=== PATIENT | male | born 1995 | race African-American/Black ===

== ENCOUNTER 2017-01-24 02:20 | Emergency (ER) | payer MEDICAID ==
[~2017-01-24] VITALS: Ht 177.8 cm; Wt 139.7 kg
--- NOTE | 2017-01-24 02:30 | NUR ---
21 yo male bb ra from senior living cell. Per EMS, while pt was in custody and waiting for [employer], he began to bang his head on the senior living wall, EMS brought pt to [facility] ED. pt is alert x 3, states he wants to hurt himself with plan; take all his psych meds at the same time. skin warm and dry, rr even and unlabored. awaiting orders from provider
[2017-01-24] MEDS ORDERED: HALOPERIDOL LACTATE INJ 5 MG/ML VIAL ONE (02:32)
[2017-01-24] MEDS ORDERED: LORAZEPAM INJ 2 MG/ML VIAL ONE (02:33)
[2017-01-24 02:47] LABS: BASOPHILS % (AUTO) 0.6 % (0.0-2.0); EOSINOPHILS # (AUTO) 0.1 /CMM (0.0-0.7); EOSINOPHILS % (AUTO) 1.4 % (0.0-6.0); HEMATOCRIT 41 % (39-51); LYMPHOCYTES # (AUTO) 2.3 /CMM (0.8-4.8); LYMPHOCYTES % (AUTO) 29.9 % (20.0-44.0); MEAN CORPUSCULAR HEMOGLOBIN 32 PG (26.0-33.0); MEAN CORPUSCULAR HGB CONC 34 g/dl (31.0-36.0); MEAN CORPUSCULAR VOLUME 93 fL (80-96); MONOCYTES # (AUTO) 0.5 /CMM (0.1-1.30); MONOCYTES % (AUTO) 5.8 % (2.0-12.0); NEUTROPHILS # (AUTO) 4.9 /CMM (1.8-8.9); NEUTROPHILS % (AUTO) 62.3 % (43.0-81.0); PLATELET COUNT (AUTO) 317 /CMM (150-450); RDW COEFFICIENT OF VARIATION 14.8 (11.5-15.0); RED BLOOD CELL COUNT(AUTO) 4.43 MIL/uL (4.5-6.0); WHITE BLOOD COUNT (AUTO) 7.8 K/uL (4.3-11.0)
[2017-01-24] MEDS: LORAZEPAM INJ 2 MG/ML VIAL IM ONE (02:48)
[2017-01-24] MEDS: HALOPERIDOL LACTATE INJ 5 MG/ML VIAL IM ONE (02:48)
--- NOTE | 2017-01-24 02:50 | NUR ---
medicated pt as ordered
--- NOTE | 2017-01-24 03:05 | NUR ---
urine sample obtained and sent to lab
[2017-01-24 03:10] LABS: ALANINE AMINOTRANSFERASE 44 U/L (12-78); ALBUMIN 3.8 g/dL (3.4-5.0); ASPARTATE AMINOTRANSFERASE 26 U/L (15-37); BILIRUBIN,DIRECT 0.1 mg/dL (0.0-0.2); BILIRUBIN,TOTAL 0.4 mg/dL (0.2-1.0); CARBON DIOXIDE 27 mmol/L (21-32); CHLORIDE 107 mmol/L (98-107); CREATININE 1.1 mg/dL (0.6-1.3); GFR 85 mL/min (>60); GLUCOSE 96 mg/dL (74-106); POTASSIUM 3.7 mmol/L (3.5-5.1); SODIUM SERUM 143 mmol/L (136-145); UREA NITROGEN, BLOOD 13 mg/dL (7-18)
--- NOTE | 2017-01-24 03:10 | NUR ---
gave pt juice and crackers
[2017-01-24 03:16] LABS: ACETAMINOPHEN 0 ug/ml (10-30); ALCOHOL, BLOOD < 3 mg/dL (0-0); SALICYLATE 1.2 mg/dL (2.8-20.0)
[2017-01-24 03:26] LABS: ALKALINE PHOSPHATASE 90 U/L (46-116); TOTAL PROTEIN, SERUM 7.8 g/dL (6.4-8.2)
[2017-01-24 03:46] LABS: APPEARANCE,URINE CLEAR (CLEAR); BILIRUBIN,URINE NEGATIVE (NEGATIVE); BLOOD, URINE NEGATIVE Ery/uL (NEGATIVE); COLOR,URINE YELLOW (YELLOW); KETONES,URINE NEGATIVE (NEGATIVE); LEUKOCYTE ESTERASE ,URINE NEGATIVE (NEGATIVE); NITRITE, URINE NEGATIVE (NEGATIVE); PROTEIN,URINE TRACE mg/dl (NEGATIVE); UGLUCOSE NEGATIVE (NEGATIVE); UROBILINOGEN,URINE 0.2 EU/dL (0.2)
[2017-01-24 03:55] LABS: PHENCYCLIDINE SCREEN,URINE NEGATIVE (NEGATIVE)
[2017-01-24 04:04] LABS: CANNABINOID, URINE POSITIVE (NEGATIVE)
[2017-01-24 04:08] LABS: ADD URINE CULTURE NO; BACTERIA,URINE None seen /HPF (None Seen); RBC,URINE 0-2 /HPF (0-2); SQUAMOUS EPITHELIAL CELL,UR Rare /HPF (None Seen)
--- NOTE | 2017-01-24 06:33 | NUR ---
PATIENT RESTING IN ER BED, NAD NOTED, SKIN WARM AND DRY. PT IS ON GL[place] BRUSHER. WILL CONTINUE TO MONITOR
[2017-01-24] MEDS ORDERED: TDAP [DIPH/PERTUSSIS/TET] 0.5 ML VIAL IM ONE (13:40)
--- NOTE | 2017-01-24 14:45 | NUR ---
ELENA AT BEDSIDE FOR EVAL.
--- NOTE | 2017-01-24 15:37 | NUR ---
CALLED [facility] [place] FOR UPDATE.
--- NOTE | 2017-01-24 16:18 | NUR ---
LEFT [facility] VOICEMAIL
--- NOTE | 2017-01-24 16:25 | NUR ---
RECEIVED A CALL FROM PATTI [facility]O SHE NOTIFIED ME THAT SANDIE WILL COME IN FOR RE-EVAL
--- NOTE | 2017-01-24 18:51 | NUR ---
TIFFANY CALLED FROM [facility], UNABLE TO ACCEPT PATIENT SINCE PATIENT WOULD REQUIRE SPECIAL ACCOMMODATIONS LIKE SINGLE ROOM AND SITTER SINCE PATIENT IS TRANSGENDER
--- NOTE | 2017-01-24 21:00 | NUR ---
CALLED [facility] FOR TRANSPORTATIONG GOING TO [facility]
[2017-01-24 22:08] VITALS: BP 133/71
--- NOTE | 2017-01-24 22:09 | NUR ---
REPORT GIVEN TO EMT FOR TRANSPORT
== END 2017-01-24 22:10 ==
LOC: ER 02:23
DX: R45.851 Suicidal ideations (principal); R40.4 Transient alteration of awareness; F20.9 Schizophrenia, unspecified
CPT/HCPCS: 36415; 70450-TC; 80048-TC; 80076-TC; 80305; 81000-TC; 85025-TC; 90715; A4606; G0480; G6039-TC; J1630; J2060; Z7610

== ENCOUNTER 2017-05-08 22:18 | Emergency (ER) | payer MEDICARE, MEDICAID ==
[~2017-05-08] VITALS: Ht 175.3 cm; Wt 138.8 kg
--- NOTE | 2017-05-08 22:30 | NUR ---
Elroy holt in [facility] - 05/08/17 at 2241 by [facility] AT BEDSIDE FOR BLOOD DRAW.
--- NOTE | 2017-05-08 22:38 | NUR ---
BIB 860 FOR -SI/HI, PT STATES "I HAVE RACING THOUGHTS, I WANT TO BE EVAULATED BY A DR." NO PLANS TO HURT SELF NOTED AT THIS TIME. PT AOX3 RR EVEN AND UNLABORED. NO SOB NOTED. NAD NOTED. NO NVD AT THIS TIME. PT PLACED ON MONITOR WAITING FOR MD WAGNER. URINE COLLECTED.
--- NOTE | 2017-05-08 22:41 | NUR ---
LAB AT BEDSIDE FOR BLOOD DRAW.
[2017-05-08 22:44] LABS: BASOPHILS % (AUTO) 0.2 % (0.0-2.0); EOSINOPHILS # (AUTO) 0.1 /CMM (0.0-0.7); EOSINOPHILS % (AUTO) 0.8 % (0.0-6.0); HEMATOCRIT 46 % (39-51); HEMOGLOBIN 15.6 g/dL (13.5-17.5); LYMPHOCYTES # (AUTO) 1.7 /CMM (0.8-4.8); MEAN CORPUSCULAR HEMOGLOBIN 32 PG (26.0-33.0); MEAN CORPUSCULAR HGB CONC 34 g/dl (31.0-36.0); MEAN CORPUSCULAR VOLUME 95 fL (80-96); MONOCYTES # (AUTO) 0.3 /CMM (0.1-1.30); MONOCYTES % (AUTO) 4.4 % (2.0-12.0); NEUTROPHILS # (AUTO) 4.8 /CMM (1.8-8.9); NEUTROPHILS % (AUTO) 69.6 % (43.0-81.0); PLATELET COUNT (AUTO) 263 /CMM (150-450); RDW COEFFICIENT OF VARIATION 13.7 (11.5-15.0); RED BLOOD CELL COUNT(AUTO) 4.88 MIL/uL (4.5-6.0); WHITE BLOOD COUNT (AUTO) 6.9 K/uL (4.3-11.0)
[2017-05-08 23:10] LABS: ALANINE AMINOTRANSFERASE 66 U/L (12-78); ALBUMIN 3.9 g/dL (3.4-5.0); ALCOHOL, BLOOD < 3 mg/dL (0-0); ALKALINE PHOSPHATASE 90 U/L (46-116); ASPARTATE AMINOTRANSFERASE 34 U/L (15-37); BILIRUBIN,DIRECT 0.1 mg/dL (0.0-0.2); BILIRUBIN,TOTAL 0.4 mg/dL (0.2-1.0); CALCIUM, SERUM 8.8 mg/dL (8.5-10.1); CARBON DIOXIDE 28 mmol/L (21-32); CHLORIDE 104 mmol/L (98-107); CREATININE 1.1 mg/dL (0.6-1.3); GLUCOSE 93 mg/dL (74-106); POTASSIUM 4.1 mmol/L (3.5-5.1); SODIUM SERUM 140 mmol/L (136-145); TOTAL PROTEIN, SERUM 8.3 g/dL (6.4-8.2); UREA NITROGEN, BLOOD 16 mg/dL (7-18)
[2017-05-08 23:11] LABS: ACETAMINOPHEN 0 ug/ml (10-30)
[2017-05-08 23:12] LABS: APPEARANCE,URINE CLEAR (CLEAR); BILIRUBIN,URINE NEGATIVE (NEGATIVE); BLOOD, URINE NEGATIVE Ery/uL (NEGATIVE); COLOR,URINE YELLOW (YELLOW); KETONES,URINE NEGATIVE (NEGATIVE); LEUKOCYTE ESTERASE ,URINE TRACE (NEGATIVE); NITRITE, URINE NEGATIVE (NEGATIVE); PROTEIN,URINE NEGATIVE (NEGATIVE); UGLUCOSE NEGATIVE (NEGATIVE); UROBILINOGEN,URINE 0.2 EU/dL (0.2)
[2017-05-08 23:20] LABS: BACTERIA,URINE None seen /HPF (None Seen); RBC,URINE NONE SEEN /HPF (0-2); SQUAMOUS EPITHELIAL CELL,UR Few /HPF (None Seen)
--- NOTE | 2017-05-09 02:20 | NUR ---
Patient is resting comfortably in bed with eyes closed. Easily aroused. VSS
--- NOTE | 2017-05-09 06:47 | NUR ---
CALLED DIETARY FOR A BREAKFAST TRAY.
--- NOTE | 2017-05-09 07:13 | NUR ---
REPORT GIVEN TO SANYA GENER
--- NOTE | 2017-05-09 07:20 | NUR ---
SITTER AT BEDSIDE
--- NOTE | 2017-05-09 07:31 | NUR ---
SITTING AT THE SIDE OF THE BED EATING BREAKFAST
[2017-05-09 08:00] VITALS: BP 125/77
--- NOTE | 2017-05-09 15:53 | NUR ---
CALLED FOR FOOD TRAY
== END 2017-05-09 15:57 | disposition home or self-care (01) ==
LOC: ER 22:27
DX: Z00.8 Encounter for other general examination (principal); F20.9 Schizophrenia, unspecified
CPT/HCPCS: 36415; 80048-TC; 80076-TC; 80305; 81000-TC; 85025-TC; A4606; G0480; Z7610